=== PATIENT | male | born 1995 ===

== ENCOUNTER 2020-03-14 22:19 | Emergency (ER) | payer OTHER ==
[2020-03-14 23:34] VITALS: BP 132/89
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
== END 2020-03-15 01:34 | disposition home or self-care (01) ==
LOC: ED 03-15 01:26
DX: S39.012A Strain of muscle, fascia and tendon of lower back, initial encounter (principal); S29.019A Strain of muscle and tendon of unspecified wall of thorax, initial encounter; Z79.899 Other long term (current) drug therapy; V49.49XA Driver injured in collision with other motor vehicles in traffic accident, initial encounter; Y92.410 Unspecified street and highway as the place of occurrence of the external cause; Y93.89 Activity, other specified; Y99.8 Other external cause status
CPT/HCPCS: 72070; 72100